=== PATIENT | female | born 1995 | race Caucasian/White ===

== ENCOUNTER 2017-10-21 17:48 | Emergency (ER) | payer BC ==
[~2017-10-21] VITALS: Ht 149.9 cm; Wt 52.2 kg
[2017-10-21] MEDS ORDERED: MINOCIN100 MG PO (17:58)
[2017-10-21] MEDS ORDERED: CLARITIN10 MG PO (18:17)
[2017-10-21] MEDS ORDERED: PREDNISONE 20 M20 MG PO (18:17)
== END 2017-10-21 18:28 | disposition home or self-care (01) ==
LOC: ER 17:48
DX: T78.40XA Allergy, unspecified, initial encounter (principal); X58.XXXA Exposure to other specified factors, initial encounter